=== PATIENT | male | born 1980 | race Hispanic/Latino ===

== ENCOUNTER 2022-12-01 11:15 | Emergency (ER) | payer SELFPAY ==
[2022-12-01 12:35] LABS: Absolute Lymphocytes (CBC) 1.4 K/uL (0.7-4.9); Hematocrit 48.5 % (39.6-49.0); Lymphocytes % 22.6 % (15.3-44.8); MCV 88.8 fL (80-100); MPV 8.3 fL (7.6-11.3); Platelets 266 thou/uL (152-406); RBC Red Blood Cell Count 5.47 M/uL (4.33-5.43)
[2022-12-01 12:39] LABS: Protime INR 0.94
[2022-12-01 12:56] LABS: Albumin 3.6 g/dL (3.4-5.0); Bilirubin Direct 0.1 mg/dL (0-0.2); Bilirubin Indirect, Calculated 0.2 mg/dL (0.2-0.8); Bilirubin Total 0.3 mg/dL (0.2-1.0); Magnesium 2.2 mg/dL (1.6-2.4); Potassium 3.9 mEq/L (3.5-5.1); Protein, Total 7.4 g/dL (6.4-8.2); Troponin High Sensitivity 4.4 pg/mL (<58.9)
--- NOTE | 2022-12-01 12:59 | RAD REPORT ---
EXAM DESCRIPTION: [place] Single View12/01/2022 12:48 pm CLINICAL HISTORY: Chest pain COMPARISON: none FINDINGS: The lungs appear clear of acute infiltrate. The heart is normal size IMPRESSION: No acute abnormalities displayed
[2022-12-01] MEDS ORDERED: ALBUTEROL 2.5 MG/3 ML NEB SOL ONE (13:49)
[2022-12-01] MEDS ORDERED: ASPIRIN 81 MG CHEWABLE TABLET ONE (13:49)
[2022-12-01 14:12] LABS: SARS-CoV-2 Antigen Rapid Res Negative (Negative)
--- NOTE | 2022-12-01 14:22 | EDPHYS ---
Physician Documentation [facility] Name: Jerod Perez Age: 42 yrs Sex: Male : 1980 Arrival Date: 12/01/2022 Time: 11:15 Bed 12 Private MD: ED Physician Rudolph Boyer HPI: 12/01 11:35 This 42 yrs old Male presents to ER via Ambulatory with complaints of Chest jh7 Pain. 11:35 Onset: The symptoms/episode began/occurred yesterday. Associated signs and symptoms: jh7 Pertinent positives: chest pain, shortness of breath, vomiting, Pertinent negatives: fever. 42-year-old male presents with chest pain and shortness of breath since yesterday. He reports a history of COVID with pulmonary embolism 2 years ago and is no longer on blood thinners. Denies having a PCP. Takes no medication.. Historical: - Allergies: 11:35 No Known Allergies; eh3 - PMHx: 11:35 pulmonary embolism; eh3 - Immunization history:: Adult Immunizations up to date. - Social history:: Smoking status: Patient reports the use of cigarette tobacco products, smokes one-half pack cigarettes per day, Patient uses alcohol, occasionally. ROS: 11:35 Constitutional: Negative for fever, chills, and weight loss, Eyes: Negative for injury, jh7 pain, redness, and discharge, Neck: Negative for injury, pain, and swelling, Abdomen/GI: Negative for abdominal pain, nausea, vomiting, diarrhea, and constipation, Back: Negative for injury and pain, MS/Extremity: Negative for injury and deformity, Skin: Negative for injury, rash, and discoloration, Neuro: Negative for headache, weakness, numbness, tingling, and seizure. 11:35 Cardiovascular: Positive for chest pain, Negative for edema, palpitations. 11:35 Respiratory: Positive for cough, shortness of breath, at rest. 11:35 All other systems are negative. Exam: 11:35 Constitutional: This is a well developed, well nourished patient who is awake, alert, jh7 and in no acute distress. Head/Face: Normocephalic, atraumatic. Neck: Trachea midline, no thyromegaly or masses palpated, and no cervical lymphadenopathy. Supple, full range of motion without nuchal rigidity, or vertebral point tenderness. No Meningismus. Cardiovascular: Regular rate and rhythm with a normal S1 and S2. No gallops, murmurs, or rubs. Normal PMI, no JVD. No pulse deficits. Respiratory: Lungs have equal breath sounds bilaterally, clear to auscultation and percussion. No rales, rhonchi or wheezes noted. No increased work of breathing, no retractions or nasal flaring. Abdomen/GI: Soft, non-tender, with normal bowel sounds. No distension or tympany. No guarding or rebound. No evidence of tenderness throughout. Back: No spinal tenderness. No costovertebral tenderness. Full range of motion. Skin: Warm, dry with normal turgor. Normal color with no rashes, no lesions, and no evidence of cellulitis. MS/ Extremity: Pulses equal, no cyanosis. Neurovascular intact. Full, normal range of motion. Neuro: Awake and alert, GCS 15, oriented to person, place, time, and situation. Motor strength 5/5 in all extremities. Sensory grossly intact. Normal gait. Vital Signs: 11:33 BP 130 / 89; Pulse 62; Resp 18; Temp 98.1; Pulse Ox 97% on R/A; Weight 81.65 kg; Height eh3 5 ft. 1 in. ; Pain 8/10; 12:28 BP 118 / 73; Pulse 59; Resp 23; Pulse Ox 95% on R/A; tf2 13:40 BP 104 / 68; Pulse 72; Resp 15; Pulse Ox 100% on R/A; tf2 13:40 Pulse Ox 100% on R/A; tf2 14:45 BP 101 / 77; Pulse 61; Resp 15; Pulse Ox 100% on R/A; Pain 2/10; tf2 11:33 Body Mass Index 34.01 (81.65 kg, 154.94 cm) eh3 11:33 Pain Scale: Adult eh3 14:45 Pain Scale: Adult tf2 Yong Coma Score: 12:35 Eye Response: spontaneous(4). Motor Response: obeys commands(6). Verbal Response: tf2 oriented(5). Total: 15. MDM: 11:22 Patient medically screened. Julio 13:10 ED course: Spoke to the patient regarding unremarkable labs, EKG, and chest x-ray. jh7 Inquired more about his symptoms and asked if he had experienced cough, headache, and congestion. He stated that he actually had been experiencing the symptoms. Will order a COVID and flu test.. 14:30 Differential diagnosis: viral Infection, bacterial infection, URI, bronchitis, jh7 pneumonia acute SD, PE. Data reviewed: vital signs, nurses notes, lab test result(s), EKG, radiologic studies, plain films. I considered the following discharge prescriptions or medication management in the emergency department Medications were administered in the Emergency Department. See MAR. Independent interpretation of the following test(s) in the Emergency Department EKG: See my EKG interpretation above. Historians other than the Patient: Daughter/Son: . Scoring Tools HEART Score: History: ECG: Age: Risk Factors: No Risk Factors Known (0), Troponin: Total Score = 0. Counseling: I had a detailed discussion with the patient and/or guardian regarding: the historical points, exam findings, and any diagnostic results supporting the discharge/admit diagnosis, the need for outpatient follow up, a design supervisor, to return to the emergency department if symptoms worsen or persist or if there are any questions or concerns that arise at home. Response to treatment: the patient's symptoms have markedly improved after treatment. ED course: Informed the patient of negative test results. He states that ever since he had COVID 2 years ago he has had intermittent shortness of breath and chest pain. He states that this has been a chronic issue for him. Agreed to prescribe him an inhaler and advised pulmonary follow-up due to long-term effects from COVID. Also advised [id number] cough and cold medications for symptom relief.. 12/01 11:41 Order name: Basic Metabolic Panel; Complete Time: 12:57 [facility] 12/01 11:41 Order name: CBC with Diff; Complete Time: 12:57 [facility] 12/01 11:41 Order name: D-Dimer; Complete Time: 12:57 [facility] 12/01 11:41 Order name: LFT's; Complete Time: 12:57 [facility] 12/01 11:41 Order name: Magnesium; Complete Time: 12:57 [facility] 12/01 11:41 Order name: NT PRO-BNP; Complete Time: 12:57 [facility] 12/01 11:41 Order name: PT-INR; Complete Time: 12:57 [facility] 12/01 11:41 Order name: Troponin HS; Complete Time: 12:57 [facility] 12/01 13:15 Order name: SARS RAPID; Complete Time: 14:16 [facility] 12/01 13:15 Order name: Flu; Complete Time: 14:16 [facility] 12/01 11:41 Order name: XRAY Chest (1 view); Complete Time: 13:02 [facility] 12/01 11:41 Order name: EKG; Complete Time: 11:42 [facility] 12/01 11:41 Order name: Cardiac monitoring; Complete Time: 12:28 [facility] 12/01 11:41 Order name: EKG - Nurse/Tech; Complete Time: 11:49 [facility] 12/01 11:41 Order name: IV Saline Lock; Complete Time: 12:28 [facility] 12/01 11:41 Order name: Labs collected and sent; Complete Time: 12:28 [facility] 12/01 11:41 Order name: O2 Per Protocol; Complete Time: 12:28 [facility] 12/01 11:41 Order name: O2 Sat Monitoring; Complete Time: 12:28 [facility] EC:32 Rate is 63 beats/min. Rhythm is regular. QRS [place] is Normal. [place] interval is normal at [facility] 138 msec. QRS interval is normal at 94 msec. QT interval is normal at 384 msec. No Q waves. T waves are Normal. No ST changes noted. Clinical impression: Normal ECG. Administered Medications: 13:40 Drug: Aspirin PO Chewable Tablet 324 mg Route: PO; tf2 13:40 Drug: Albuterol Inhalation 2.5 mg Route: Inhalation; tf2 13:40 Follow up: Pulse Ox 100% RA tf2 Disposition: 14:46 Co-signature as Attending Physician, Rudolph BARRERA was immediately available on-site ms3 in the Emergency Department for consultation in the care of the patient. Disposition Summary: 12/01/22 14:22 Discharge Ordered Location: Home [facility] Problem: new [facility] Symptoms: have improved [facility] Condition: Stable [facility] Diagnosis - Shortness of breath [facility] Followup: [facility] - With: Private Physician - When: 2 - 3 days - Reason: Recheck today's complaints Discharge Instructions: - Discharge Summary Sheet [facility] - Nonspecific Chest Pain, Adult [facility] - Shortness of Breath, Adult [facility] Forms: - Work release form bd - Medication Reconciliation Form [facility] - Thank You Letter [facility] - Patient Portal Instructions [facility] Prescriptions: - ProAir RespiClick 90 mcg/actuation Inhalation Aerosol Powder, Breath Activated - administer 1 inhalation by INHALATION route every 4 to 6 hours As needed as jh needed for shortness of breath or wheezing; 1 Each; Refills: 0, Product Selection Permitted Signatures: Dispatcher [employer] Rudolph Dorsey DO DO ms3 Jackie Adame, RN RN eh3 Kylah Field, LENS FABRICATING MACHINE TENDER LENS FABRICATING MACHINE TENDER jh7 Dianna Servin, RN RN tf2
--- NOTE | 2022-12-01 14:22 | ER ---
Nurse's Notes [facility] Name: Jerod Perez Age: 42 yrs Sex: Male : 1980 Arrival Date: 12/01/2022 Time: 11:15 Bed 12 Private MD: Diagnosis: Shortness of breath Presentation: 12/01 11:33 Chief complaint: Patient states: chest pain across bilateral pectoral area, described eh3 as "burning" started at 1350 yesterday. Hx of PE left side 2 years ago. C/o dizziness, lightheaded, N/V since yesterday. Coronavirus screen: Vaccine status: Patient reports receiving the 2nd dose of the covid vaccine. Ebola Screen: No symptoms or risks identified at this time. Initial Sepsis Screen: Does the patient meet any 2 criteria? No. Patient's initial sepsis screen is negative. Does the patient have a suspected source of infection? No. Patient's initial sepsis screen is negative. Risk Assessment: Do you want to hurt yourself or someone else? Patient reports no desire to harm self or others. Onset of symptoms was December 01, 2022. 11:33 Method Of Arrival: Ambulatory 3 11:33 Acuity: ES 2 eh3 Triage Assessment: 11:35 General: Appears in no apparent distress. uncomfortable, Behavior is calm, cooperative, eh3 appropriate for age. Pain: Complains of pain in chest Pain does not radiate. Neuro: Level of Consciousness is awake, alert, obeys commands, Oriented to person, place, time, situation. Cardiovascular: Capillary refill < 3 seconds Patient's skin is warm and dry. Respiratory: Airway is patent Respiratory effort is even, unlabored, Respiratory pattern is regular, symmetrical. GI: Reports nausea, vomiting. 11:35 Neuro: Reports dizziness, headache weakness. eh3 Historical: - Allergies: 11:35 No Known Allergies; eh3 - PMHx: 11:35 pulmonary embolism; eh3 - Immunization history:: Adult Immunizations up to date. - Social history:: Smoking status: Patient reports the use of cigarette tobacco products, smokes one-half pack cigarettes per day, Patient uses alcohol, occasionally. Screenin:34 Abuse screen: Denies threats or abuse. Denies injuries from another. Nutritional tf2 screening: On. Tuberculosis screening: No symptoms or risk factors identified. 12:35 [facility] ED Fall Risk Assessment (Adult) History of falling in the last 3 months, tf2 including since admission No falls in past 3 months (0 pts) Confusion or Disorientation No (0 pts) Intoxicated or Sedated No (0 pts) Impaired Gait No (0 pts) Mobility Assist Device Used No (0 pt) Altered Elimination No (0 pt) Score/Fall Risk Level 0 - 2 = Low Risk Oriented to surroundings, Maintained a safe environment, Provided non-skid footwear, Used ambulatory aids as needed (educated on \\T\\ assisted with). Assessment: 12:28 Also complains of no other symptoms. General: Appears in no apparent distress. Pain: tf2 Pain began gradually. Neuro: No deficits noted. Cardiovascular: No deficits noted. Respiratory: Reports cough that is productive, yallow sputum. Vital Signs: 11:33 BP 130 / 89; Pulse 62; Resp 18; Temp 98.1; Pulse Ox 97% on R/A; Weight 81.65 kg; Height eh3 5 ft. 1 in. ; Pain 8/10; 12:28 BP 118 / 73; Pulse 59; Resp 23; Pulse Ox 95% on R/A; tf2 13:40 BP 104 / 68; Pulse 72; Resp 15; Pulse Ox 100% on R/A; tf2 13:40 Pulse Ox 100% on R/A; tf2 14:45 BP 101 / 77; Pulse 61; Resp 15; Pulse Ox 100% on R/A; Pain 2/10; tf2 11:33 Body Mass Index 34.01 (81.65 kg, 154.94 cm) eh3 11:33 Pain Scale: Adult eh3 14:45 Pain Scale: Adult tf2 Vitals: 12:35 Cardiac Rhythm Assessment Regular Sinus rhythm. tf2 Yong Coma Score: 12:35 Eye Response: spontaneous(4). Motor Response: obeys commands(6). Verbal Response: tf2 oriented(5). Total: 15. ED Course: 11:17 Patient arrived in ED. mr 11:22 Kylah Field FNP is [facility]. jh7 11:22 Rudolph Boyer DO is Attending Physician. jh7 11:35 Triage completed. eh3 11:35 Arm band placed on. eh3 11:39 Dianna Servin, RN is Primary Nurse. tf2 12:34 Provided Education on: discussed nebulizer meds. tf2 12:35 Awaiting lab results, Awaiting radiology results. tf2 12:35 Patient has correct armband on for positive identification. Bed in low position. Call tf2 light in reach. Side rails up X2. Client placed on continuous cardiac and pulse oximetry monitoring. NIBP monitoring applied. media monitor on. 12:35 No provider procedures requiring assistance completed. Inserted saline lock: 18 gauge tf2 in left antecubital area, using aseptic technique. Patient maintains SpO2 saturation greater than 95% on room air. 12:50 XRAY Chest (1 view) In Process Unspecified. EDMS 13:37 Flu Sent. tf2 13:37 SARS RAPID Sent. tf2 15:00 IV discontinued, intact, bleeding controlled, No redness/swelling at site. Pressure tf2 dressing applied. Administered Medications: 13:40 Drug: Aspirin PO Chewable Tablet 324 mg Route: PO; tf2 13:40 Drug: Albuterol Inhalation 2.5 mg Route: Inhalation; tf2 13:40 Follow up: Pulse Ox 100% RA tf2 Medication: 12:35 VIS not applicable for this client. tf2 Outcome: 14:22 Discharge ordered by MD. quinteros 15:00 Discharged to home ambulatory. tf2 15:00 Condition: stable 15:00 Discharge instructions given to patient, significant other, Instructed on discharge instructions, follow up and referral plans. medication usage, Demonstrated understanding of instructions, Prescriptions given X 1. 15:02 Patient left the ED. tf2 Signatures: Dispatcher [employer] [facility] Nalini Newton Jackie Adame, RN RN 3 Kylah Field FNP BUTTERMILK DRIER OPERATOR 7 Dianna Servin, RN RN tf2
[2022-12-01 15:06] VITALS: TEMP 98.1
[2022-12-01 15:10] VITALS: O2SAT 100
[2022-12-01 15:11] VITALS: BP 101/77
--- NOTE | 2022-12-03 18:17 | EKG ---
Test Date: 2022-12-01 Test Time: 11:32:47 Cryptologic Technician Operator/Analyst: ELADIO MEASUREMENT RESULTS: Intervals: Rate: 63 OH: 138 QRSD: 94 QT: 384 QTc: 392 [place]: P: 17 OH: 138 QRS: 15 T: 38 INTERPRETIVE STATEMENTS: Normal sinus rhythm Normal ECG No previous ECG available for comparison Electronically Signed On 12-03-22 18:12:36 CDT by Michael Hayden
== END 2022-12-01 15:02 | disposition home or self-care (01) ==
LOC: ER 11:15
DX: R06.02 Shortness of breath (principal)
CPT/HCPCS: 36415; 71045; 80048; 80076; 83735; 83880; 84484; 85025; 85379; 85610; 87804; 87811; 93005; 99285; J7613